=== PATIENT | female | born 1975 | race Native Hawaiian/Other Pacific Islander ===

== ENCOUNTER 2016-10-17 09:32 | Outpatient (CLI) | payer OTHER | END 2016-10-17 19:49 | disposition home or self-care (01) | LOC: MAMMO 09:32 | DX: Z12.31 Encounter for screening mammogram for malignant neoplasm of breast (principal) | CPT/HCPCS: G0202-TC ==

== ENCOUNTER 2016-10-30 12:46 | Outpatient (CLI) | payer OTHER | END 2016-10-30 19:08 | disposition home or self-care (01) | LOC: MAMMO 12:46 | DX: R92.8 Other abnormal and inconclusive findings on diagnostic imaging of breast (principal) | CPT/HCPCS: G0206-TC ==

== ENCOUNTER 2016-11-20 17:51 | Emergency (ER) | payer OTHER ==
[~2016-11-20] VITALS: Ht 170.2 cm; Wt 87.5 kg
[2016-11-20 19:05] VITALS: BP 152/92; TEMP 98
== END 2016-11-20 19:08 | disposition home or self-care (01) ==
LOC: ED 17:51
PROC: 09C0XZZ Extirpation of Matter from Right External Ear, External Approach (ICD-10-PCS; principal; 2016-11-20)
DX: T16.1XXA Foreign body in right ear, initial encounter (principal)
CPT/HCPCS: 99283; J7040

== ENCOUNTER 2017-04-30 08:54 | Outpatient (CLI) | payer OTHER | END 2017-04-30 11:00 | disposition home or self-care (01) | LOC: MAMMO 08:54 | DX: R92.8 Other abnormal and inconclusive findings on diagnostic imaging of breast (principal) ==

== ENCOUNTER 2017-10-30 09:33 | Outpatient (CLI) | payer OTHER | END 2017-10-30 19:27 | disposition home or self-care (01) | LOC: MAMMO 09:33 | DX: R92.8 Other abnormal and inconclusive findings on diagnostic imaging of breast (principal) ==

== ENCOUNTER 2019-02-12 08:24 | Outpatient (CLI) | payer OTHER | END 2019-02-12 23:41 | disposition home or self-care (01) | LOC: MAMMO 08:24 | DX: Z12.31 Encounter for screening mammogram for malignant neoplasm of breast (principal) ==

== ENCOUNTER 2020-05-04 08:28 | Outpatient (CLI) | payer OTHER | END 2020-05-04 23:10 | disposition home or self-care (01) | LOC: MAMMO 08:28 | DX: Z12.31 Encounter for screening mammogram for malignant neoplasm of breast (principal) ==